=== PATIENT | male | born 1975 | race Caucasian/White ===

== ENCOUNTER 2017-08-07 10:04 | Inpatient (IN) | payer OTHER ==
[~2017-08-07] VITALS: Ht 177.8 cm; Wt 80.7 kg
--- NOTE | 2017-08-07 10:04 | NUR ---
Patient was BIBA and taken to bed 07 via gurney.
[2017-08-07 10:09] VITALS: BP 134/91
--- NOTE | 2017-08-07 10:15 | NUR ---
PT BIBA FOR EVALUATION OF SUICIDAL IDEATION. HX SCHIZOPHRENIA, ANXIETY, PSORIASIS. DENIES N/V/D; SKIN IS PINK/WARM/DRY; AAOX4 WITH EVEN AND STEADY GAIT; LUNGS CLEAR BL; HR EVEN AND REGULAR; PT DENIES ANY FEVER, CP, SOB, OR COUGH AT THIS TIME; PATIENT STATES PAIN OF 4/10 AT THIS TIME; VSS; PATIENT POSITIONED FOR COMFORT; HOB ELEVATED; BEDRAILS UP X2; BED DOWN. ER MD MADE AWARE OF PT STATUS.
--- NOTE | 2017-08-07 11:10 | NUR ---
[place] [facility] AT BEDSIDE EVALUATING AAO PT
[2017-08-07 11:30] LABS: BASOPHILS # (AUTO) 0.2 K/uL (0.00-0.22); BASOPHILS % (AUTO) 2.7 % (0.0-2.0); EOSINOPHILS # (AUTO) 0.1 K/uL (0-0.4); EOSINOPHILS % (AUTO) 1.1 % (0.0-4.0); HEMATOCRIT 43.2 % (36-52); HEMOGLOBIN 14.5 g/dL (12.0-18.0); LYMPHOCYTES # (AUTO) 2.1 K/uL (2.0-11.5); LYMPHOCYTES % (AUTO) 23.9 % (20.5-51.1); MEAN CORPUSCULAR HEMOGLOBIN 31 pg (27-31); MEAN CORPUSCULAR HGB CONC 34 g/dL (33-37); MEAN CORPUSCULAR VOLUME 91 fL (80-94); MONOCYTES % (AUTO) 10.9 % (1.7-9.3); NEUTROPHILS # (AUTO) 5.5 K/uL (1.8-7.7); NEUTROPHILS % (AUTO) 61.4 % (42.2-75.2); PLATELET COUNT (AUTO) 228 K/uL (140-450); RED BLOOD CELL COUNT(AUTO) 4.75 MIL/uL (4.20-6.10); RED CELL DISTRIBUTION WIDTH 12.6 % (11.6-13.7); WHITE BLOOD COUNT (AUTO) 8.9 K/uL (4.8-10.8)
[2017-08-07 11:43] LABS: ANION GAP 17.5 (8-16); CARBON DIOXIDE 24.2 mmol/L (21-32); CHLORIDE 102 mmol/L (98-107); CREATININE 1.4 mg/dL (0.7-1.3); GFR ARICAN-AMERICAN 72 mL/min (>90); GLUCOSE 114 mg/dL (74-106); POTASSIUM 3.7 mmol/L (3.5-5.1); SODIUM SERUM 140 mmol/L (136-145); UREA NITROGEN, BLOOD 27 mg/dL (7-18)
--- NOTE | 2017-08-07 11:45 | NUR ---
PT UNABLE TO PROVIDE URINE AT THIS TIME, GIVEN WATER ON A STIROFOAM CUP, GISELLE THORNTON AT BEDSIDE, WILL CONTINUE TO MONITOR
[2017-08-07 11:49] LABS: ACETAMINOPHEN < 0.5 ug/ml (10-30); ALBUMIN 4.4 g/dL (3.4-5.0); ASPARTATE AMINOTRANSFERASE 44 U/L (15-37); SALICYLATE < 2.8 mg/dL (2.8-20.0)
--- NOTE | 2017-08-07 12:11 | NUR ---
AAO COOPERATIVE PT WITH NO DISTRESS NOTED UNABLE TO PROVIDE URINE AT THIS TIME
[2017-08-07 14:05] LABS: APPEARANCE,URINE HAZY (CLEAR); BILIRUBIN,URINE 1+ (NEGATIVE); BLOOD, URINE NEGATIVE (NEGATIVE); COLOR,URINE ORANGE (YELLOW); LEUKOCYTE ESTERASE ,URINE NEGATIVE (NEGATIVE); NITRITE, URINE NEGATIVE (NEGATIVE); PH,URINE 6.5 (5.0-9.0); UGLUCOSE NEGATIVE (NEGATIVE)
[2017-08-07 14:11] LABS: BARBITURATE, URINE NEG. ng/ml (NEG <=200); BENZODIAZEPINE, URINE NEG. ng/mL (NEG <=200); CANNABINOID, URINE NEG. ng/mL (NEG <=50); COCAINE, URINE NEG. ng/mL (NEG <=300); OPIATE, URINE NEG. ng/mL (NEG <=2000); PHENCYCLIDINE SCREEN,URINE NEG. ng/mL (NEG <=25)
[2017-08-07 14:26] LABS: RBC,URINE 0-5 (RARE) /HPF (0-5); WBC,URINE 0-5 (RARE) /HPF (0-5)
--- NOTE | 2017-08-07 14:48 | NUR ---
AAO PT, NO DISTRESS NOTED, GISELLE THORNTON AT [facility], WILL CONTINUE TO MONITOR
[2017-08-07] MEDS ORDERED: LORazepam 1 MG TAB PO ONE (15:25)
[2017-08-07] MEDS ORDERED: ONDANSETRON 4 MG/2 ML VIAL IVP PRN (15:25)
[2017-08-07] MEDS ORDERED: MORPHINE SULFATE 2 MG/ML SYR IVP PRN (15:25)
--- NOTE | 2017-08-07 15:27 | NUR ---
PT BECOMING AGITATED STANDING NEXT TO BED, DR WICK NOTIFIED, 2 MG ATIVAN GIVEN PO PER MD'S ORDER, SUE GEORGES AT BEDSIDE, AWAITING ADMITING ORDERS, WILL CONTINUE TO MONITOR
--- NOTE | 2017-08-07 16:39 | NUR ---
RN UNAVAILABLE FOR REPORT AT THIS TIME
--- NOTE | 2017-08-07 16:52 | NUR ---
Patient will be admitted to care of DR MARTINEZ, DR MCGEE. Admited to M/S. Will go to room 110B. Belongings list completed. Report to SUE RM.
--- NOTE | 2017-08-07 17:02 | NUR ---
AAO COOPERATIVE PT, POST MEDICATION "FEELS BETTER", NO DISTRESS NOTED TAKEN TO M/S 110B BY GISELLE THORNTON
--- NOTE | 2017-08-07 17:12 | NUR ---
PT ARRIVED FROM ER IN [facility], PT AAOX4, RESP EVEN UNLABORED, SKIN WARM DRY COLOR WNL, PT AMBULATES FROM HALLWAY TO BED WITH STEADY GAIT, INITIAL ASSESSMENT DONE, PT STATES HE FELT VERY ANXIOUS AND HEARD VOICES TELL HIM TO KILL HIMSELF, SO HE CAME TO ER, PT DENIES HAVING SOLID PLAN OF SUICIDE, PT DENIES SUICIDAL IDEATION AT THIS TIME, DENIES HOMICIDAL IDEATION, PT CONTRACTS FOR SAFETY WHILE HERE, PT ON 1:1 SUICIDE WATCH, PT ORIENTED TO ROOM AND FLOOR, SUICIDAL PRECAUTION INITIATED, ROOM PREPPED FOR SAFETY, PT WITH SEVER PSORIASIS LESIONS THROUGHOUT BODY, PHOTO TAKEN, PT CONSTANTLY ITCHING, LARGE AMOUNT OF DRY SKIN FLAKES NOTED ON BED, WILL CALL DOCTOR FOR MEDICATION FOR ITCHING, PLAN OF CARE DISCUSSED WITH PT, PT VERBALIZED FULL UNDERSTANDING. MRSA SWAB DONE. WILL CONTINUE TO MONITOR.
[2017-08-07] MEDS: hydrOXYzine HCL 25 MG TAB PO PRN (18:47)
[2017-08-07] MEDS: diphenhydrAMINE 2% 30 GM TUBE TP SCH (18:48)
--- NOTE | 2017-08-07 18:51 | NUR ---
MEDICATED WITH ATARAX AND BENADRYL CREAM AT THIS TIME.
[2017-08-07] MEDS ORDERED: LORazepam 2 MG/ML VIAL IVP PRN (19:00)
--- NOTE | 2017-08-07 19:27 | NUR ---
REPORT GIVEN TO ADJUNCT INSTRUCTOR IN ECONOMICS NURSE, PT IN STABLE CONDITION.
--- NOTE | 2017-08-07 19:28 | NUR ---
PATIENT REPORT RECEIVED AT BEDSIDE FROM MORNING NURSE. PATIENT IS AWAKE, ALERT, AND ORIENTED. NO SIGNS AND SYMPTOMS OF DISTRESS NOTED. NO COMPLAINTS OF PAIN AT THIS TIME. IV SITE NOTED ON RIGHT FOREARM, SALINE LOCKED. 1:1 SITTER PRESENT. WILL CONTINUE TO MONITOR.
[2017-08-07 20:00] VITALS: BP 128/72
[2017-08-08] VITALS: BP 129/80
--- NOTE | 2017-08-08 02:00 | NUR ---
CHECKED ON PATIENT, PATIENT IS ASLEEP. NO SIGNS AND SYMPTOMS OF DISTRESS NOTED. BED IN LOWEST POSITION, WILL CONTINUE TO MONITOR.
--- NOTE | 2017-08-08 05:33 | NUR ---
RECEIVED PHONE CALL FROM [facility]. THEY HAVE A ROOM FOR THE PATIENT ONCE HE IS MEDICALLY CLEARED. ATTENDING DR. WILL BE DR. CHAVEZ.
--- NOTE | 2017-08-08 07:25 | NUR ---
PATIENT REPORT GIVEN TO MORNING NURSE. PATIENT IS IN STABLE CONDITION.
--- NOTE | 2017-08-08 07:35 | NUR ---
RECEIVED REPORT FROM ROLLER PRINTING SUPERVISOR NURSE, PT IS SLEEPING IN BED BUT EASILY AWAKEN, PT IS A/OX4, AMBULATORY, IV IS ON THE RIGHT AC, PATENT, INTACT, FLUSHING WELL, PSORIASIS NOTED ON BILATERAL ELBOWS, NO S/S OF RESPIRATORY DISTRESS OR DISCOMFORT NOTED, CALL LIGHT WITHIN REACH, WILL CONTINUE TO MONITOR.
[2017-08-08] MEDS ORDERED: DEXTROSE 50% 50 ML SYR IVP PRN (07:55)
[2017-08-08] MEDS ORDERED: INSULIN LISPRO SLIDING SCALE 100 UNITS/ML VIAL SUBQ PRN (07:55)
[2017-08-08 08:00] VITALS: BP 95/57
[2017-08-08] MEDS: NACL 0.9% 1,000 ML IV SCH ×3 (08:48→21:50)
[2017-08-08] MEDS ORDERED: MULTIVITAMIN-12 10 ML, THIAMINE 100 MG, MAGNESIUM SULFATE 50% 2,000 MG, FOLIC ACID 5 MG... IV ONE ×5 (09:00)
[2017-08-08] MEDS ORDERED: ENOXAPARIN 40 MG/0.4 ML SYR SUBQ SCH (09:00)
--- NOTE | 2017-08-08 09:00 | NUR ---
PATIENT HAS BEEN SCREENED AND CATEGORIZED LOW NUTRITION RISK. PATIENT WILL BE SEEN WITHIN 7 DAYS OF ADMISSION. 08/13/[address]
--- NOTE | 2017-08-08 09:49 | NUR ---
CALLED PHARMACY I LET THEM KNOW I WAS WAITING ON THE BANANA BAG FOR THE PT. THEY STATED THEY WERE WORKING ON IT RIGHT NOW AND WOULD BRING IT OVER SOON IT WAS READY.
--- NOTE | 2017-08-08 09:54 | NUR ---
CM NOTE INITIAL REVIEW FAXED TO [facility] [phone] # [place] [phone]
[2017-08-08] MEDS: diphenhydrAMINE 2% 30 GM TUBE TP SCH ×2 (10:23→21:00)
[2017-08-08 10:29] LABS: ALBUMIN 3.7 g/dL (3.4-5.0); ANION GAP 15.9 (8-16); CARBON DIOXIDE 25.5 mmol/L (21-32); CREATININE 1.1 mg/dL (0.7-1.3); POTASSIUM 3.4 mmol/L (3.5-5.1); TOTAL BILIRUBIN 0.5 mg/dL (0.0-1.0)
[2017-08-08] MEDS: BLOOD GLUCOSE MONITORING 1 DEV DEV FS SCH ×2 (11:30→21:00)
--- NOTE | 2017-08-08 14:54 | NUR ---
1130 MET WITH PT AND HE STATED THAT HE HAS BEEN HOMELESS 3 YEARS AND [place] OUT IN [place]. PT STATED THAT HE GOES TO [facility] [facility]. DECLINED ANY HOMELESS OR SUBSTANCE ABUSE RESOURCES AND REQUEST ONLY A BUS PASS ON DISCHARGE.
--- NOTE | 2017-08-08 15:33 | NUR ---
NOTIFIED DR. MARTINEZ REGARDING LAB RESULT, PATIENT CAN D/C HOME.
--- NOTE | 2017-08-08 15:50 | NUR ---
DISCHARGE INSTRUCTIONS GIVEN, ID WRIST BAND REMOVED, IV REMOVED, CATHETER TIP INTACT. PT STABLE AT THIS TIME.
--- NOTE | 2017-08-08 16:15 | NUR ---
PER PATIENT HIS SISTER TOMÁS IS GOING TO PICK HIM UP TODAY AROUND 1730.
--- NOTE | 2017-08-08 19:22 | NUR ---
ENDORSED PT TO PHARMACY INFORMATICS SPECIALIST NURSE, PT STABLE AT THIS TIME. PT IS STILL WAITING ON SISTER WHO HE SAID IS DRIVING FROM [place].
--- NOTE | 2017-08-08 19:30 | NUR ---
RECEIVED PT SLEEPING, EASILY AROUSABLE, DENIES ANY PAIN, NO IV LINE, FOR DISCHARGE HOME, AWAITING SISTER FOR JACK PRIZER, CALL LIGHT WITHIN REACH.
--- NOTE | 2017-08-08 21:00 | NUR ---
BULLET ASSEMBLY PRESS OPERATOR DEUCE INFORMED ME THAT SHE CALLED PT'S MOTHER #[phone], NO ANSWER, SHE LEFT MESSAGE.
--- NOTE | 2017-08-08 21:20 | NUR ---
CALLED SISTER CUONG #[phone] TO FOLLOW UP ON PICKING UP THE PT, NO ANSWER, LEFT MESSAGE, WILL FOLLOW UP.
--- NOTE | 2017-08-08 21:50 | NUR ---
FOLLOW UP CALL TO SISTER CUONG, NO ANSWER, LEFT MESSAGE, PT CALLED SISTER CUONG, NO ANSWER, HE LEFT MESSAGE, PT CALLED ANOTHER SISTER MITZI WHO LIVES IN [place] TO CALL CUONG TO FOLLOW UP ON [employer] ARCHITECT, TOMOGRAPHIC TECH IS AWARE.
--- NOTE | 2017-08-08 22:19 | NUR ---
CALLED DR MOLINA TO UPDATE ON PT'S DC STATUS, DR MOLINA SAID JUST TO KEEP ON TRYING, LABEL CUTTER DEUCE MADE AWARE.
[2017-08-08] MEDS: hydrOXYzine HCL 25 MG TAB PO PRN (22:31)
--- NOTE | 2017-08-08 23:17 | NUR ---
CALLED SISTER CUONG FOR FOLLOW UP, NO ANSWER, LEFT MESSAGE, PT MADE AWARE, ASKING FOR SNACK, SANDWICH PROVIDED, VITAL SIGNS STABLE, NO DISTRESS NOTED, MONITORED CLOSELY.
[2017-08-09] VITALS: BP 100/54
--- NOTE | 2017-08-09 03:10 | NUR ---
ROUNDED ON PT, SEEN SLEEPING, NO SIGNS OF DISTRESS, MONITORED CLOSELY.
[2017-08-09] MEDS: NACL 0.9% 1,000 ML IV SCH (04:30)
--- NOTE | 2017-08-09 06:00 | NUR ---
BLOOD SUGAR CHECKED WITH 90 RESULT, PT ASKING FOR SNACK, SANDWICH PROVIDED, DENIES ANY PAIN.
[2017-08-09] MEDS: BLOOD GLUCOSE MONITORING 1 DEV DEV FS SCH (06:36)
--- NOTE | 2017-08-09 06:45 | NUR ---
FOLLOW UP CALL TO SISTER CUONG #[phone] FOR PATROL DEPUTY SHERIFF, NO ANSWER, LEFT MESSAGE, WILL ENDORSE.
--- NOTE | 2017-08-09 07:12 | NUR ---
PT SLEEPING, NO SIGNS OF DISTRESS, REPORT GIVEN TO SUE CARVAJAL FOR CONTINUITY OF CARE.
[2017-08-09 08:00] VITALS: BP 111/56
--- NOTE | 2017-08-09 09:25 | NUR ---
PT DISCHARGED, PT STABLE UPON DISCHARGE, PT WAS PROVIDED WITH BUS PASS ON 08/08/17.
--- NOTE | 2017-08-09 09:59 | NUR ---
I CALLED THE PATIENT'S SISTER TOMÁS BECAUSE I RECEIVED A MESSAGE LETTING ME KNOW THE SISTER WAS TRYING TO FIND OUT IF THE PATIENT HAD DISCHARGED. I CALLED TOMÁS AT [phone], I SPOKE TO TOMÁS'S I LET HIM KNOW THE PATIENT HAD ALREADY BEEN DISCHARGED THIS MORNING AND WAS PROVIDED WITH A BUS PASS YESTERDAY. THE PATIENT'S BROTHER IN [place] VERBALIZED UNDERSTANDING.
== END 2017-08-09 09:25 | disposition home or self-care (01) | DRG 775 ==
LOC: MED 10:04 → MTU 15:24
PROVIDERS: ADMIT Hospitalist; ATTEND Hospitalist
DX: F10.129 Alcohol abuse with intoxication, unspecified (principal); R45.851 Suicidal ideations; F33.2 Major depressive disorder, recurrent severe without psychotic features; F20.9 Schizophrenia, unspecified; E88.9 Metabolic disorder, unspecified; F17.210 Nicotine dependence, cigarettes, uncomplicated; F41.0 Panic disorder [episodic paroxysmal anxiety]; R94.5 Abnormal results of liver function studies; L40.9 Psoriasis, unspecified; Z59.0 Homelessness
CPT/HCPCS: 36415; 80053; 80305; 81001; 82550; 82948; 83036; 84484; 85025; 87081; 93005; 99285; A9153; G0480; G0482; J1815; J2060; J3411; J3475; J3490; J7030